=== PATIENT | female | born 1980 | race Caucasian/White ===

== ENCOUNTER → 2020-05-06 | Outpatient (CLI) | payer BC ==
[2020-05-06 09:57] LABS: HEMOGLOBIN 13.9 gm/dl (12.3-15.3); RED BLOOD COUNT 4.76 M/UL (4.00-5.10); WHITE BLOOD COUNT 8.2 K/UL (4.5-11.0)
[2020-05-06 10:14] LABS: BUN/CREATININE RATIO 12 (0-10)
[2020-05-07 09:14] LABS: FREE THYROXINE INDEX 1.5 (1.2-4.9)
== END ==
LOC: LAB 08:51
PROVIDERS: Advanced Practice Midwife
DX: Z13.220 Encounter for screening for lipoid disorders (principal); Z13.1 Encounter for screening for diabetes mellitus
CPT/HCPCS: 36415; 80053; 80061; 84436; 84443; 84479; 85025